=== PATIENT | female | born 1930 | race Caucasian/White ===

== ENCOUNTER 2016-12-30 23:09 | Emergency (ER) | payer SELFPAY ==
--- NOTE | 2017-01-08 07:32 | ER ---
ADMIT: 12/30/2016 RM/LOC: ER [facility] MR#: [id number] [facility] [address] [place], [place] [address] ANGELLA TAYLOR [address] [place] [address] Emergency Room Report SEX: F AGE: 86 : 1930 DATE: 12/30/2016 See T-sheet for complete H and P. ADDENDUM: An 86-year-old female, comes in with a couple days of shortness of breath which is worse when she lies down flat at night. She also states she has some slightly increasing leg swelling in bilateral lower extremities. On examination, she had very mildly decreased breath sounds in the bases. Chest x-ray was done, which does show she has some mild edema. Her blood pressure here was quite high, initially she was 240 systolic. We checked CBC, which was unremarkable other than hemoglobin of 11.5. A BNP was slightly elevated at 852, I do not have a baseline. Potassium is 3.5, and glucose is 122. She was given Lasix 40 mg IV, Ativan 0.05 mg IV, and her blood pressure improved to about 220 systolic. This was followed by two doses of clonidine 0.1 mg p.o. and metoprolol 12.5 mg p.o. The patient is feeling much better and she feels like she is breathing fine. At this point, we will be discharging the patient home, starting her on Lasix and potassium and she is to follow up in 4 days as scheduled with her regular physician. She is told she can return to the ER for any worsening symptoms. DIAGNOSES: 1. Congestive heart failure. 2. Hypertension. 3. Shortness of breath. Saúl Mac MD/ mikel JOB #: [id number] CC: Saúl Mac MD, Attending Physician Nathalie Hinojosa MD, Family Physician
== END 2016-12-31 02:15 | disposition home or self-care (01) ==
LOC: ER 23:09
DX: I50.9 Heart failure, unspecified (principal); I10 Essential (primary) hypertension; E11.9 Type 2 diabetes mellitus without complications; Z90.710 Acquired absence of both cervix and uterus

== ENCOUNTER 2017-01-01 20:35 | Emergency (ER) | payer SELFPAY ==
--- NOTE | 2017-01-02 05:44 | ER ---
ADMIT: 01/01/2017 RM/LOC: ER [facility] MR#: [id number] [facility] [address] [place], [place] [address] ANGELLA TAYLOR [address] [place] [address] Emergency Room Report SEX: F AGE: 86 : 1930 DATE: 01/01/2017 The patient is an 86-year-old, Serbian-speaking female, who states that she is having ongoing chest discomfort, particularly when she lies down for the past 24 hours, was seen by Dr. Mac yesterday, placed on Lasix for her hypertension after being given clonidine yesterday. Cardiac risk factors include hypertension. Exam remarkable for nontoxic, afebrile female. Initial blood pressure 218/79, discharge 160/70. EKG shows sinus rhythm with borderline T-waves inferiorly, QTc of 507 milliseconds. Chest x-ray, no acute findings, unchanged from yesterday. Normal CBC except hemoglobin 11.5, CRP less than 0.29. Normal CMP except lactic acid 1.9, lipase 187. Normal CK-MB and troponin. D-dimer 0.32. The patient was given aspirin, nitroglycerin x2 with lowering of blood pressure. Advised to increase metoprolol 25 mg b.i.d., 1st dose in department. No added salt diet and follow up with [facility] next week. Nestor Harmon MD/ mikel JOB #: [id number] CC: Nestor Harmon MD, Attending Physician Nathalie Hinojosa MD, Family Physician . [facility]
== END 2017-01-01 22:30 | disposition home or self-care (01) ==
LOC: ER 20:35
DX: K21.9 Gastro-esophageal reflux disease without esophagitis (principal); R07.9 Chest pain, unspecified; I10 Essential (primary) hypertension; E11.9 Type 2 diabetes mellitus without complications; Z79.899 Other long term (current) drug therapy